=== PATIENT | female | born 1930 | race Caucasian/White ===

== ENCOUNTER → 2017-10-30 | Outpatient (CLI) | payer OTHER ==
[~2017-10-30] MED LIST: ACET325T96 PO; ACET650S10 PR; ASPEC81 PO; BISA10SU7 PR; CARB25TA12 PO; CHOL20005 PO; DOCU-94 PO; FURO-85 PO; LEVO88TA PO; MEMA5TAB2 PO; MOML PO; MULT60CA PO; POLY335040 PO; POTA-74 PO; SENN8.6T9 PO; SODIENE PR
== END | disposition home or self-care (01) ==
LOC: C.LABFOXDH 17:59
PROVIDERS: ATTEND Internal Medicine
DX: R41.82 Altered mental status, unspecified (principal); R10.9 Unspecified abdominal pain; N39.0 Urinary tract infection, site not specified